=== PATIENT | female | born 1990 | race Caucasian/White ===

== ENCOUNTER 2021-05-02 21:47 | Emergency (ER) | payer MEDICAID ==
[~2021-05-02] VITALS: Ht 157.5 cm; Wt 49.9 kg
[2021-05-02 22:27] VITALS: BP 151/80
--- NOTE | 2021-05-02 22:35 | NUR ---
TO LOBBY FOLLOWING TRIAGE
--- NOTE | 2021-05-02 23:31 | NUR ---
PT TAKEN TO BED 2
--- NOTE | 2021-05-02 23:41 | NUR ---
PATIENT C/O VAGINAL BLEEDING X1 DAY. PATIENT STARTED BLEEDING YESTERDAY AT 0500 UNPROVOKED; DENIES TRAUMA AND INJURY. PATIENT REPORTED THAT IT STARTED OUT SPOTTING AND BECAME CLOTS. 10/10 PAIN STABBING, CONSTANT AND DENIES RADIATING LOCATION. PATIENT REPORTS TAKING KELLER AND NAUSEA MEDICATION BUT CANT RECALL MEDICATION NAMES. HAS N/V AND DENIES FEVER AND CHILLS. AAOX4. PMH: DENIES NKA
--- NOTE | 2021-05-02 23:55 | NUR ---
patient ambulated to the bathroom with a steady gait
--- NOTE | 2021-05-03 00:16 | NUR ---
Urine and blood collected and sent to lab.
[2021-05-03 00:56] LABS: APPEARANCE,URINE CLEAR (CLEAR); BILIRUBIN,URINE NEGATIVE (NEGATIVE); BLOOD, URINE 3+ (NEGATIVE); COLOR,URINE YELLOW (YELLOW); LEUKOCYTE ESTERASE ,URINE NEGATIVE (NEGATIVE); NITRITE, URINE NEGATIVE (NEGATIVE); UGLUCOSE NEGATIVE (NEGATIVE)
[2021-05-03] MEDS ORDERED: NACL 0.9% 1,000 ML IV ONE (01:15)
[2021-05-03 01:16] LABS: RBC,URINE 50-80 /HPF (0-5); WBC,URINE 0-5 /HPF (0-5)
[2021-05-03 01:53] LABS: BASOPHILS # (AUTO) 0.1 K/uL (0.00-0.22); BASOPHILS % (AUTO) 0.7 % (0.0-2.0); EOSINOPHILS # (AUTO) 0.2 K/uL (0-0.4); EOSINOPHILS % (AUTO) 3.2 % (0.0-4.0); HEMATOCRIT 32.8 % (36-48); LYMPHOCYTES # (AUTO) 1.4 K/uL (2.5-16.5); LYMPHOCYTES % (AUTO) 18.3 % (20.5-51.1); MEAN CORPUSCULAR HEMOGLOBIN 30 pg (27-31); MEAN CORPUSCULAR HGB CONC 34 g/dL (33-37); MONOCYTES # (AUTO) 0.6 K/uL (0.8-1.0); NEUTROPHILS # (AUTO) 5.5 K/uL (1.8-7.7); NEUTROPHILS % (AUTO) 69.8 % (42.2-75.2); PLATELET COUNT (AUTO) 369 K/uL (140-450); RED BLOOD CELL COUNT(AUTO) 3.65 MIL/uL (4.20-5.40); RED CELL DISTRIBUTION WIDTH 13.6 % (11.6-13.7); WHITE BLOOD COUNT (AUTO) 7.8 K/uL (4.8-10.8)
--- NOTE | 2021-05-03 02:06 | NUR ---
PATIENT AMBULATED TO THE BATHROOM. DETACHED PATIENT FROM LEADS AND FLUIDS.
[2021-05-03 02:11] LABS: ALBUMIN 3.5 g/dL (3.4-5.0); CARBON DIOXIDE 24.6 mmol/L (21-32); CREATININE 0.5 mg/dL (0.6-1.3); POTASSIUM 3.6 mmol/L (3.5-5.1); TOTAL BILIRUBIN 0.1 mg/dL (0.0-1.0)
--- NOTE | 2021-05-03 02:58 | NUR ---
patient ambulated to the bathroom. disconnected from monitors.
--- NOTE | 2021-05-03 03:02 | NUR ---
PATIENT AMBULATED TO THE BATHROOM. DETACHED PATIENT FROM LEADS AND FLUIDS.
--- NOTE | 2021-05-03 03:15 | NUR ---
ultrasound at bedside
--- NOTE | 2021-05-03 06:44 | NUR ---
ERMD AT BEDSIDE FOR Pelvic exam performed by Chase SILVESTRE with Kaia RN at bedside for entire examination. Patient tolerated procedure well. Patient assisted to position of comfort after examination.
[2021-05-03 07:05] VITALS: BP 95/56
--- NOTE | 2021-05-03 07:05 | NUR ---
Patient discharged with v/s stable. Written and verbal after care instructions given and explained. Patient verbalized understanding. Ambulatory with steady gait. ID band removed and provided excused work form. All questions addressed prior to discharge. Advised to follow up with PMD.
== END 2021-05-03 07:05 | disposition home or self-care (01) ==
LOC: MED 21:47
DX: O46.91 Antepartum hemorrhage, unspecified, first trimester (principal); O26.891 Other specified pregnancy related conditions, first trimester; R10.2 Pelvic and perineal pain; Z3A.09 9 weeks gestation of pregnancy
CPT/HCPCS: 36415; 76817; 80053; 81001; 81025; 84702; 85025; 86900; 86901; 96360; 99284; J7030; Q0092